=== PATIENT | male | born 1930 | race Caucasian/White ===

== ENCOUNTER → 2018-03-02 | Outpatient (REF) | payer MEDICARE ==
[2018-03-02 20:07] LABS: RHEUMATOID FACTOR QUANT < 10.0 IU/ML (<15.0)
[2018-03-02 20:38] LABS: ERYTHROCYTE SEDIMENTATION RATE 12 mm/hr (0-30)
[2018-03-08 10:09] LABS: ANCA-ATYPICAL <1:20 titer (Neg:<1:20); ANGIOTENSIN 1 CONVERTING ENZYM 27 U/L (14-82); ANTINUCLEAR ANTIBODIES DIRECT Negative (Negative); ASPERGILLUS FUMIGATUS AB Negative (Negative); AUREOBASIDIUM PULLULANS Negative (Negative); CYTOPLASMIC NEUTROP AB ANCA-C <1:20 titer (Neg:<1:20); MICROPOLYSPORA FAENI AB Negative (Negative); PERINUCLEAR AB ANCA-P <1:20 titer (Neg:<1:20); PIGEON SERUM AB Negative (Negative); SJOGREN'S ANTI SS-A <0.2 AI (0.0-0.9); SJOGREN'S ANTI SS-B <0.2 AI (0.0-0.9); THERMOACTINOMYCES SACCHARI Negative (Negative); THERMOACTINOMYCES VULGARIS Negative (Negative)
== END ==
LOC: M LAB REF 17:37
DX: J44.9 Chronic obstructive pulmonary disease, unspecified (principal)
CPT/HCPCS: 82164

== ENCOUNTER 2018-04-21 08:53 | Day surgery (SDC) | payer MEDICARE ==
[~2018-04-21 08:53] MED LIST: LIDOCAINE 2% INJ 100 MG/5 ML SDV (FOR ANES.) As Ordered; MIDAZOLAM INJ 2 MG/2 ML VIAL (J2250) As Ordered; ONDANSETRON 4MG/2ML VIAL (J2405) As Ordered; PROPOFOL 200 MG/20 ML VIAL As Ordered; ROCURONIUM BROMIDE 50 MG/5 ML VIAL As Ordered; dexameTHASONE 4 MG/ML 1ML VIAL (J1100) As Ordered; fentaNYL 100 MCG/2 ML INJECTION (J3010) As Ordered
[2018-04-21 10:10] LABS: BEDSIDE GLUCOSE 182 MG/DL (83-110)
[2018-04-21] MEDS: LIDOCAINE 1% MDV 20ML VIAL As Ordered ×2 (10:25)
[2018-04-21] MEDS: EPINEPHrine 1MG/10ML SYRINGE 1.5IN As Ordered ×2 (10:25)
[2018-04-21] MEDS: LIDOCAINE VISCOUS 2% SOLN 15ML UDC As Ordered ×2 (10:25)
[2018-04-21] MEDS: CETACAINE SPRAY 5GM As Ordered ×2 (11:11)
[2018-04-21] MEDS ORDERED: PERCOCET 5MG/325MG TAB PO ×2 (12:15)
[2018-04-21] MEDS ORDERED: HYDROMORPHONE HCL 0.5 MG/ 0.5 ML SYRINGE (J1170 PER 1) IV ×2 (12:15)
[2018-04-21] MEDS ORDERED: ONDANSETRON 4MG/2ML VIAL (J2405) IV ×2 (12:15)
[2018-04-21] MEDS ORDERED: LR 1,000 ML IV ×2 (12:15)
[2018-04-21] MEDS ORDERED: fentaNYL 100 MCG/2 ML INJECTION (J3010) IV ×2 (12:15)
[2018-04-21 15:05] LABS: APPEARANCE CLEAR (CLEAR); BAL DIFF IF INDICATED? YES (NO); COLOR COLORLESS (COLORLESS); SOURCE LEFT LOWER LOBE; WBC BAL COUNTED 105
[2018-04-21 15:06] LABS: APPEARANCE CLEAR (CLEAR); BAL DIFF IF INDICATED? YES (NO); COLOR COLORLESS (COLORLESS); SOURCE RIGHT UPPER LOBE; WBC BAL COUNTED 145
[2018-04-21 15:14] LABS: MONOCYTES/MACROPHAGES, BAL 6 %
[2018-04-21 15:18] LABS: MONOCYTES/MACROPHAGES, BAL 10 %
[2018-04-21 15:33] LABS: CC BAL DIFF EXAM CYTOCENTRIFUGE
== END 2018-04-21 13:27 | disposition home or self-care (01) ==
LOC: M SDC 08:53
DX: C34.11 Malignant neoplasm of upper lobe, right bronchus or lung (principal); J44.9 Chronic obstructive pulmonary disease, unspecified; J84.9 Interstitial pulmonary disease, unspecified; I10 Essential (primary) hypertension; E78.5 Hyperlipidemia, unspecified; E03.9 Hypothyroidism, unspecified; I48.91 Unspecified atrial fibrillation; Z79.01 Long term (current) use of anticoagulants; I25.10 Atherosclerotic heart disease of native coronary artery without angina pectoris; Z98.61 Coronary angioplasty status; E11.9 Type 2 diabetes mellitus without complications; Z79.899 Other long term (current) drug therapy; Z79.51 Long term (current) use of inhaled steroids; Z87.891 Personal history of nicotine dependence
CPT/HCPCS: 31623